=== PATIENT | female | born 1950 | race Caucasian/White ===

== ENCOUNTER 2018-09-26 12:43 | Day surgery (SDC) | payer MEDICARE ==
[2018-09-26] MEDS ORDERED: PROPOFOL 10 MG/ML VIAL IV ONE (12:44)
[2018-09-26] MEDS ORDERED: LIDOCAINE 2% MDV (20MG/ML) 20ML VIAL IV ONE (12:44)
--- NOTE | 2018-09-27 10:00 | Operative Note ---
DATE OF SURGERY: 09/26/2018 OPERATION: COLONOSCOPY with cold forceps polypectomy. PREOPERATIVE DIAGNOSIS: Colon cancer screening, average risk. POSTOPERATIVE DIAGNOSES: 1. Ascending colon polyp. 2. Sigmoid diverticulosis. PREPARATION QUALITY: Good. ESTIMATED BLOOD LOSS: Minimum. SPECIMENS: Ascending colon. COMPLICATIONS: None apparent. PROCEDURE: After informed consent was obtained from the patient, she was placed in the left lateral decubitus position in the endoscopy suite, sedated and monitored by the department of anesthesia. Digital rectal exam was unremarkable. A well-lubricated [id number] colonoscope was inserted into the rectum and advanced to the cecum. Preparation quality was good. The cecum, cecal bulb ileocecal valve, and appendiceal orifice were unremarkable. The ascending colon revealed a 3 mm polyp removed with a cold forceps. The remainder of the ascending colon, transverse colon, and descending colon were unremarkable. The sigmoid colon did reveal mild diverticular changes. No polyps or inflammation was seen. The rectum was unremarkable in forward and in J-turn views. The endoscope was straightened, the rectal ampulla deflated, and the endoscope was removed. RECOMMENDATIONS: The patient should follow a high-fiber diet. She will require repeat exam in 5 years. As always, thank you for allowing me to participate in the healthcare of your patients. CC: DAVID BREWSTER D.O. PATRICE
== END 2018-09-26 14:10 | disposition home or self-care (01) ==
LOC: HOP 12:43
PROVIDERS: ATTEND Internal Medicine Gastroenterology
DX: Z12.11 Encounter for screening for malignant neoplasm of colon (principal); D12.2 Benign neoplasm of ascending colon; K57.30 Diverticulosis of large intestine without perforation or abscess without bleeding; E78.00 Pure hypercholesterolemia, unspecified; M79.7 Fibromyalgia

== ENCOUNTER 2019-04-02 17:57 | Emergency (ER) | payer MEDICARE ==
--- NOTE | 2019-04-02 18:54 | Emergency Department Record ---
History of Present Illness - General Chief complaint: Flank Pain Stated complaint: KIDNEY STONE Time Seen by Provider: 04/02/19 18:27 Source: Patient Mode of Arrival: Ambulatory Limitations: No limitations - History of Present Illness Initial comments: Pt with left flank pain similar to "kidney stone" years ago. Onset 3 days ago. Comes and goes in "waves". No fever, no hematuria, no nausea or vomiting. No DM. Pt has not taken additional pain meds. Has fibromyalgia and uses Tramdol. No radiation of pain. No anterior abdominal pains. No prior treatments. Onset/Timin -: Days(s) Radiation: L flank Associated Symptoms: Nausea/vomiting - Related Data Home Medications Medication Instructions Recorded Confirmed Last Taken Celecoxib [Celebrex] 200 mg PO DAILY 04/02/19 04/02/19 04/02/19 Duloxetine HCl 60 mg PO BID 04/02/19 04/02/19 04/02/19 Propranolol HCl 20 mg PO BID 04/02/19 04/02/19 04/02/19 Rosuvastatin Calcium [Crestor] 5 mg PO QHS 04/02/19 04/02/19 04/01/19 Tramadol HCl [Tramadol HCl ER] 300 mg PO DAILY 04/02/19 04/02/19 04/01/19 Trazodone HCl 150 mg PO QHS 04/02/19 04/02/19 04/01/19 Previous Rx's Medication Instructions Recorded Ibuprofen [Motrin 600Mg] 600 mg PO Q6H 5 Days #20 tablet 04/02/19 Sulfamethoxazole/Trimethoprim 1 each PO BID 5 Days #10 tablet 04/02/19 [Bactrim Ds Tablet] Allergies Allergy/AdvReac Type Severity Reaction Status Date / Time mold Allergy RESPIRATORY Verified 04/02/19 18:30 IRRITATION Travel Screening - Travel/Exposure Within Last 30 Days Have you traveled within the last 30 days?: No - Travel/Exposure Within Last Year Have you traveled outside the [place] in the last year?: No - Additonal Travel Details Have you been exposed to anyone with a communicable illness?: No - Travel Symptoms Symptom Screening: None Review of Systems Constitutional: Denies: Chills, Fever, Weakness Eyes: Denies: Eye discharge, Photophobia ENT: Denies: Congestion Respiratory: Denies: Cough, Dyspnea Cardiovascular: Denies: Arrhythmia, Chest pain, Syncope Endocrine: Denies: Fatigue, Polydipsia, Polyuria Gastrointestinal: Denies: Abdominal pain, Diarrhea, Nausea, Vomiting Genitourinary: Denies: Abnormal menses Musculoskeletal: Reports: As per HPI, Back pain Skin: Denies: Bruising, Rash Neurological: Denies: Headache, Seizure, Weakness Psychiatric: Denies: Anxiety Hematological/Lymphatic: Denies: Anemia Past Medical History - SOCIAL HISTORY Smoking Status: Never smoker Alcohol Use: Occasional Drug Use: None - RESPIRATORY Hx Respiratory Disorders: No - CARDIOVASCULAR Hx Cardio Disorders: Yes Comment:: high cholesterol - NEURO Hx Neuro Disorders: Yes Hx of Migraines: Yes (as a teenager) - GI Hx GI Disorders: No - Hx Genitourinary Disorders: Yes Hx Kidney Stones: Yes - ENDOCRINE Hx Endocrine Disorders: No - MUSCULOSKELETAL Hx Musculoskeletal Disorders: Yes Hx Arthritis: Yes Hx Fibromyalgia: Yes - PSYCH Hx Psych Problems: Yes Hx Anxiety: Yes - HEMATOLOGY/ONCOLOGY Hx Hematology/Oncology Disorders: No Family Medical History Any Significant Family History?: No Physical Exam - General General Appearance: Alert, Oriented x3, Cooperative, No acute distress - Head Head exam: Normal inspection - Eye Eye exam: Normal appearance, PERRL - ENT ENT exam: Normal exam, Mucous membranes moist, Normal external ear exam, Normal orophraynx - Neck Neck exam: Normal inspection, Full ROM. negative: Tenderness - Respiratory Respiratory exam: Normal lung sounds bilaterally. negative: Respiratory distress - Cardiovascular Cardiovascular Exam: Regular rate, Normal rhythm, Normal heart sounds Peripheral Pulses: 2+: Radial (R), Radial (L) - GI/Abdominal GI/Abdominal exam: Soft, Normal bowel sounds. negative: Distended, Rigid, Tenderness - Extremities Extremities exam: Normal inspection. negative: Pedal edema, Tenderness - Back Back exam: Reports: CVA tenderness (L). Denies: CVA tenderness (R) - Neurological Neurological exam: Alert, Normal gait, Oriented X3 - Psychiatric Psychiatric exam: Normal affect, Normal mood - Skin Skin exam: Normal color. negative: Rash Course Vital Signs 04/02/19 18:22 Temperature 98.5 F Pulse Rate 66 Respiratory 20 Rate Blood Pressure 171/81 Pulse Ox 100 - Reevaluation(s) Reevaluation #1: 04/02/19 20:29 CT with 4mm UVJ stone with mild hydro per rad read. Pt comfortable. Plan for home outlined. and daughter in room at discharge Disposition Disposition: Discharge Clinical Impression: Kidney stone on left side, Hydronephrosis Condition: (1) Good Instructions: Kidney Stones (ED) Additional Instructions: Take meds as instructed. See your family doctor in 2-3 days Return here as needed. Prescriptions: Sulfamethoxazole/Trimethoprim [Bactrim Ds Tablet] 1 each PO BID 5 Days #10 tabl et Ibuprofen [Motrin 600Mg] 600 mg PO Q6H 5 Days #20 tablet Forms: Patient Portal Access Quality - Quality Measures Quality Measures: N/A - Blood Pressure Screening Does Patient Have Any of the Following: No Blood Pressure Classification: Pre-Hypertensive BP Reading Systolic Measurement: 171 Diastolic Measurement: 81 Screening for High Blood Pressure: < Pre-Hypertensive BP, F/U Documented > [G8950] Pre-Hypertensive Follow-up Interventions: Follow-up with rescreen every year.
[2019-04-02 20:21] LABS: URINE APPEARANCE CLEAR; URINE BILIRUBIN NEGATIVE (NEGATIVE); URINE BLOOD SMALL (NEGATIVE); URINE COLOR YELLOW; URINE GLUCOSE (UA) NEGATIVE (NEGATIVE); URINE KETONE NEGATIVE (NEGATIVE); URINE LEUKOCYTE ESTERASE NEGATIVE (NEGATIVE); URINE NITRITE NEGATIVE (NEGATIVE); URINE PROTEIN TRACE (NEGATIVE); URINE UROBILINOGEN 0.2 E.U./dL (0.20 - 1.00)
[2019-04-02 20:28] LABS: URINE AMORPHOUS SEDIMENT 2+; URINE EPITHELIAL CELLS 0 - 2 (FEW); URINE RBC 0 - 2 (NONE SEEN); URINE WBC NONE SEEN (0-2/hpf)
[2019-04-02] MEDS ORDERED: TMP/SMZ 160MG/800MG TAB PO ONE (20:29)
[2019-04-02] MEDS ORDERED: IBUPROFEN 600 MG TABLET PO ONE (20:29)
--- NOTE | 2019-04-04 14:19 | CT SCAN REPORT ---
EXAM: CT OF THE ABDOMEN AND PELVIS WITHOUT CONTRAST HISTORY: LEFT FLANK PAIN FOR FOUR DAYS. TECHNIQUE: Standard CT imaging of the abdomen and pelvis without intravenous contrast was obtained. Comparison: None. FINDINGS: The lung bases are clear. The liver is unremarkable. No calcified gallstones. No peripancreatic fat stranding. The spleen is normal in size. Left adrenal gland thickening without discrete nodule. Mild left hydronephrosis and perinephric edema with a 4 mm calculus at the left ureteropelvic junction. No other ureteral calculus. There are multiple renal stones bilaterally, the largest on the left measures 5 mm and the largest on the right measures 3 mm. No bowel dilatation. The bladder is unremarkable. There is colonic diverticulosis without evidence for diverticulitis. Moderate stool throughout the colon. The appendix is normal. No free fluid or free air is seen. No retroperitoneal or mesenteric adenopathy. No destructive osseous lesion is identified. There is severe degenerative disk disease at L4-L5 with Grade 1 anterolisthesis at this level likely secondary to facet arthropathy. Severe neural foraminal stenosis bilaterally at this level along with severe spinal canal stenosis. IMPRESSION: 1. A 4 MM CALCULUS AT THE LEFT URETEROPELVIC JUNCTION CAUSES MILD OBSTRUCTIVE UROPATHY. 2. BILATERAL NEPHROLITHIASIS. 3. SEVERE DEGENERATIVE CHANGES AT L4-L5 INCLUDING SEVERE BILATERAL NEURAL FORAMINAL AND SPINAL CANAL STENOSIS. JOB NUMBER: [id number] [facility]
== END 2019-04-02 20:54 | disposition home or self-care (01) ==
LOC: ER 17:57
DX: N13.2 Hydronephrosis with renal and ureteral calculous obstruction (principal); Z87.442 Personal history of urinary calculi
CPT/HCPCS: 74176; 81001; 99284